=== PATIENT | female | born 2000 | race Caucasian/White ===

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

== ENCOUNTER 2024-01-21 08:24 | Emergency (ER) | payer OTHER, SELFPAY ==
[2024-01-21 09:34] LABS: Absolute Basophils 0.1 K/uL (0-0.5); Absolute Eosinophils 0.1 K/uL (0-0.5); Absolute Lymphocytes (CBC) 1.9 K/uL (0.7-4.9); Absolute Monocytes 0.5 K/uL (0.1-1.3); Absolute Neutrophil 3.8 K/uL (1.8-8.0); Basophils % 1.2 % (0-1.3); Eosinophils % 0.9 % (0-4.4); Hematocrit 41.1 % (36.0-45.0); Hemoglobin 13.5 g/dL (12.0-15.0); MCH 27.4 pg (27.0-35.0); MCHC 32.9 g/dL (32.0-36.0); MCV 83.2 fL (80-100); MPV 9.4 fL (7.6-11.3); Monocytes % 8.4 % (3.3-12.3); Neutrophils % 59.5 % (41.7-73.7); Nucleated Red Blood Cells % 0.1 % (0-0); Platelets 318 thou/uL (152-406); RBC Red Blood Cell Count 4.93 M/uL (3.86-4.86)
[2024-01-21 09:38] LABS: Specific Gravity 1.029 (1.005-1.030)
[2024-01-21 09:41] LABS: Specific Gravity 1.029 (1.005-1.030); Transitional Epithelial <5 /HPF (None Seen); Urine Bacteria >50 /HPF (<20); Urine Bilirubin 1+ (Negative); Urine Blood Negative (Negative); Urine Clarity Extremely Turbid (Clear); Urine Color Yellow (Yellow); Urine Culture Reflex Order NOT NEEDED; Urine Glucose 3+ (Negative); Urine Ketones 4+ (Over) (Negative); Urine Microscopic Reflex YN ORDER UMIC; Urine Mucus 4+ /HPF (None Seen); Urine Nitrite NEGATIVE (Negative); Urine Protein 1+ (Negative); Urine RBC <5 /HPF (None Seen); Urine Urobilinogen 1+ (Normal); Urine pH 5.5 (5.0-7.0)
[2024-01-21] MEDS ORDERED: ONDANSETRON 4 MG/2 ML VIAL ONE (09:43)
[2024-01-21] MEDS ORDERED: NA CHLORIDE 0.9% 1,000 ML ONE (09:46)
[2024-01-21] MEDS ORDERED: FAMOTIDINE 20 MG/2 ML VIAL IV ONE (09:46)
[2024-01-21 10:01] LABS: Albumin 4.5 g/dL (3.4-5.0); Albumin/Globulin Ratio 1.1 (1.1-1.8); Alkaline Phosphatase 62 U/L (45-117); Anion Gap 11.5 mEq/L (5.0-15.0); BUN Blood Urea Nitrogen 9 mg/dL (7-18); Bicarbonate 23 mEq/L (21-32); Bilirubin Total 0.9 mg/dL (0.2-1.0); Globulin 4.1 g/dL (2.3-3.5); Glomerular Filtration Rate 113 ml/min (=/>90); Glucose Level 144 mg/dL (74-106); Lipase 31 U/L (13-75); Potassium 3.5 mEq/L (3.5-5.1); Protein, Total 8.6 g/dL (6.4-8.2); Sodium Level 136 mEq/L (136-145)
[2024-01-21 10:02] LABS: ALT/SGPT < 14 U/L (13-56); AST/SGOT < 10 U/L (15-37)
--- NOTE | 2024-01-21 11:10 | EDPHYS ---
Physician Documentation [facility] Name: Mary Yancey Age: 23 yrs Sex: Female : 2000 Arrival Date: 01/21/2024 Time: 08:24 Bed 19 Private MD: ED Physician Drake Shelby HPI: 01/20 09:49 This 23 yrs old Female presents to ER via Ambulatory with complaints of Palpitations. rn 09:49 The patient presents with a history of heart racing. Context: The symptoms occur at rn rest. Onset: The symptoms/episode began/occurred 6 month(s) ago. Duration: The patient or guardian reports multiple episodes. Modifying factors: The symptoms are aggravated by nothing. The symptoms are alleviated by nothing. Severity of symptoms: At their worst the symptoms were moderate in the emergency department the symptoms are unchanged. The patient has experienced similar episodes in the past. Patient reports heart racing and palpitations, nausea, vomiting. Worse over the last couple of days but just recently took her last dose of Mounjaro. States this has been happening intermittently for 6 months. Patient is also type I diabetic on insulin, states glucose in the 200s lately currently down to 160s. Also having diarrhea. Feels weak and dehydrated. No abdominal pain. Historical: - Allergies: 08:38 No Known Allergies; ll1 - PMHx: 08:38 Diabetes - IDDM; Jeannette; Pilonidol Cyst; ll1 - Immunization history:: Adult Immunizations up to date. - Infectious Disease History:: Denies. - Family history:: not pertinent. - Hospitalizations: : No recent hospitalization is reported. - Social history:: Smoking status: Patient denies any tobacco usage or history of. ROS: 09:49 Constitutional: Negative for fever, chills, and weight loss, Cardiovascular: Positive rn for heart racing Respiratory: Negative for shortness of breath, cough, wheezing, and pleuritic chest pain, Abdomen/GI: Positive for nausea/vomiting/diarrhea. No abdominal pain MS/Extremity: Negative for injury and deformity, Neuro: Positive for generalized weakness Exam: 09:34 ECG was reviewed by the Attending Physician. rn 09:49 Constitutional: This is a well developed, well nourished patient who is awake, alert, rn and in no acute distress. Head/Face: Normocephalic, atraumatic. ENT: Dry mucous membranes Cardiovascular: Tachycardic, regular. Respiratory: Speaking full sentences, unlabored. Abdomen/GI: Soft, nontender, no masses, no guarding or rebound MS/ Extremity: Pulses equal, no cyanosis. Neurovascular intact. Full, normal range of motion. Equal circumference. Neuro: Awake and alert, GCS 15 Vital Signs: 08:49 BP 117 / 83; Pulse 85; Resp 18; Temp 98; Pulse Ox 100% ; Weight 83.01 kg; Height 5 ft. ll1 8 in. ; Pain 0/10; 10:07 BP 109 / 80; Pulse 100; Resp 16; Pulse Ox 99% ; bp 10:46 BP 116 / 82; Pulse 94; Resp 16; Pulse Ox 100% ; bp 11:45 BP 111 / 78; Pulse 94; Resp 15; Pulse Ox 100% ; bp 08:49 Body Mass Index 27.82 (83.01 kg, 172.72 cm) ll1 08:49 Pain Scale: Adult ll1 MDM: 08:30 Medical Screening Exam initiated rn 11:08 Data reviewed: vital signs, nurses notes, lab test result(s), and as a result, I will bowl turner patient. Counseling: I had a detailed discussion with the patient and/or guardian regarding the historical points, exam findings, and any diagnostic results supporting the discharge/admit diagnosis, lab results, the need for outpatient follow up, to return to the emergency department if symptoms worsen or persist or if there are any questions or concerns that arise at home. Response to treatment: the patient's symptoms have markedly improved after treatment, patient is well hydrated. and as a result, I will discharge patient. Special discussion: I discussed with the patient/guardian in detail that at this point there is no indication for admission to the hospital. It is understood, however, that if the symptoms persist or worsen the patient needs to return immediately for re-evaluation. Based on the history and exam findings, there is no indication for further emergent testing or inpatient evaluation. I discussed with the patient/guardian the need to see the primary care provider for further evaluation of the symptoms. ED course: No acute findings and workup. 4+ ketones but no anion gap or evidence of DKA. Glucose in the 100s. No acidosis. Stable vital signs. Improved with fluids. Still no abdominal pain or indication for emergent imaging at this time. Most likely secondary to patient's Mounjaro and recommend talking to her tube operator who put her on the medication but most likely needs to stop it. Could be causing metabolic disturbance as well as gastroparesis.. 01/20 09:04 Order name: CBC with Diff; Complete Time: 09:48 rn 01/20 09:04 Order name: CMP; Complete Time: 10:10 rn 01/20 09:04 Order name: Lipase; Complete Time: 10: rn 01/20 09:05 Order name: Test, Urine; Complete Time: :48 rn 01/20 09:05 Order name: Urinalysis w/ reflexes; Complete Time: :48 rn 01/20 09:04 Order name: EKG; Complete Time: : rn 01/20 09:04 Order name: IV Start; Complete Time: 09:21 rn 01/20 09:04 Order name: Labs collected and sent; Complete Time: 09:21 rn 01/20 09:04 Order name: Glucose Level; Complete Time: : rn 01/20 09:04 Order name: EKG - Nurse/Tech; Complete Time: 09:08 rn EC:34 Rate is 98 beats/min. Rhythm is regular. QRS [place] is Normal. [place] interval is normal. QRS rn interval is normal. QT interval is normal. No Q waves. T waves are Normal. No ST changes noted. Clinical impression: Normal ECG. Interpreted by me. Reviewed by me. Administered Medications: 09:30 Drug: Famotidine IVP 20 mg IVP once; dilute with 10 mL 0.9% NaCl; give over 2 minutes bp Route: IVP; Site: right antecubital; 11:46 Follow up: Response: No adverse reaction bp 09:30 Drug: Ondansetron IVP 4 mg IVP once; over 2 minutes Route: IVP; Site: right antecubital;bp 11:46 Follow up: Response: No adverse reaction bp 09:30 Drug: NS 0.9% IV 1000 ml IV at 1 bolus Per protocol; to be given as a bolus over 60 bp minutes Route: IV; Rate: 1 bolus; Site: right antecubital; 11:46 Follow up: IV Status: Completed infusion bp Disposition Summary: 01/21/24 11:10 Discharge Ordered Notes: Location: Home rn Problem: new rn Symptoms: have improved rn Condition: Stable rn Diagnosis - Dehydration rn - Adverse effect of unspecified drugs, medicaments and biological substances rn Followup: rn - With: Private Physician - When: As needed - Reason: Recheck today's complaints, Re-evaluation by your physician Discharge Instructions: - Discharge Summary Sheet rn - Dehydration, Adult rn Forms: - Medication Reconciliation Form rn - Antibiotic media intern - Prescription Opioid Use rn - Patient Portal Instructions rn - Leadership Thank You Letter rn Signatures: Dispatcher [employer] EDMS Drake Shelby MD MD rn Peltier, Brian RN RN Timothy Mayorga RN RN ll1 Corrections: (The following items were deleted from the chart) 09:05 09:05 Test, Urine+UC.LAB.BRZ ordered. EDMS EDMS 09:05 09:05 Urinalysis+U.LAB.BRZ ordered. EDMS EDMS
--- NOTE | 2024-01-21 11:10 | ER ---
Nurse's Notes [facility] Name: Mary Yancey Age: 23 yrs Sex: Female : 2000 Arrival Date: 01/21/2024 Time: 08:24 Bed 19 Private MD: Diagnosis: Dehydration;Adverse effect of unspecified drugs, medicaments and biological substances Presentation: 01/20 08:49 Chief complaint: Patient states: N/V, palpitations, elevated blood sugar since Friday. ll1 Coronavirus screen: Client denies travel out of the [place] in the last 14 days. At this time, the client does not indicate any symptoms associated with coronavirus-19. Ebola Screen: Patient denies travel to an Ebola-affected area in the 21 days before illness onset. Initial Sepsis Screen: Does the patient meet any 2 criteria? No. Patient's initial sepsis screen is negative. Does the patient have a suspected source of infection? No. Patient's initial sepsis screen is negative. Risk Assessment: Do you want to hurt yourself or someone else? Patient reports no desire to harm self or others. Onset of symptoms was January 18, 2024. 08:49 Method Of Arrival: Ambulatory ll1 08:49 Acuity: CATHY 3 ll1 Triage Assessment: 09:00 General: Appears in no apparent distress. Behavior is cooperative, appropriate for age, bp anxious. Pain: Denies pain. EENT: No deficits noted. Neuro: No deficits noted. Cardiovascular: Reports palpitations. Respiratory: No deficits noted. GI: No signs and/or symptoms were reported involving the gastrointestinal system. : No signs and/or symptoms were reported regarding the genitourinary system. Derm: No deficits noted. Musculoskeletal: No deficits noted. Historical: - Allergies: 08:38 No Known Allergies; ll1 - PMHx: 08:38 Diabetes - IDDM; Jeannette; Pilonidol Cyst; ll1 - Immunization history:: Adult Immunizations up to date. - Infectious Disease History:: Denies. - Family history:: not pertinent. - Hospitalizations: : No recent hospitalization is reported. - Social history:: Smoking status: Patient denies any tobacco usage or history of. Screenin:44 [facility] ED Fall Risk Assessment (Adult) History of falling in the last 3 months, bp including since admission No falls in past 3 months (0 pts) Confusion or Disorientation No (0 pts) Intoxicated or Sedated No (0 pts) Impaired Gait No (0 pts) Mobility Assist Device Used No (0 pt) Altered Elimination No (0 pt) Score/Fall Risk Level 0 - 2 = Low Risk. Abuse screen: Denies threats or abuse. Denies injuries from another. Nutritional screening: No deficits noted. Tuberculosis screening: No symptoms or risk factors identified. Assessment: 09:00 General: Appears in no apparent distress. Behavior is cooperative, appropriate for age, bp anxious. 10:46 Reassessment: Patient appears in no apparent distress at this time. Patient is alert, bp oriented x 3, equal unlabored respirations, skin warm/dry/pink. Vital Signs: 08:49 BP 117 / 83; Pulse 85; Resp 18; Temp 98; Pulse Ox 100% ; Weight 83.01 kg; Height 5 ft. ll1 8 in. ; Pain 0/10; 10:07 BP 109 / 80; Pulse 100; Resp 16; Pulse Ox 99% ; bp 10:46 BP 116 / 82; Pulse 94; Resp 16; Pulse Ox 100% ; bp 11:45 BP 111 / 78; Pulse 94; Resp 15; Pulse Ox 100% ; bp 08:49 Body Mass Index 27.82 (83.01 kg, 172.72 cm) ll1 08:49 Pain Scale: Adult ll1 ED Course: 08:26 Patient arrived in ED. mg5 08:30 Drake Shelby MD is Attending Physician. rn 08:38 Arm band placed on Patient placed in an exam room, on a stretcher. ll1 08:51 Triage completed. ll1 09:08 Art [place], SANJANA is Primary Nurse. bp 09:22 Initial lab(s) drawn, by sc, sent to lab. Urine collected: clean catch specimen, clear. bp Inserted saline lock: 20 gauge in right antecubital area, using aseptic technique. Blood collected. Flushed with 10 mL NS. 11:44 Patient has correct armband on for positive identification. bp 11:44 No provider procedures requiring assistance completed. IV discontinued, intact, bp bleeding controlled, No redness/swelling at site. Pressure dressing applied. Administered Medications: 09:30 Drug: Famotidine IVP 20 mg IVP once; dilute with 10 mL 0.9% NaCl; give over 2 minutes bp Route: IVP; Site: right antecubital; 11:46 Follow up: Response: No adverse reaction bp 09:30 Drug: Ondansetron IVP 4 mg IVP once; over 2 minutes Route: IVP; Site: right antecubital;bp 11:46 Follow up: Response: No adverse reaction bp 09:30 Drug: NS 0.9% IV 1000 ml IV at 1 bolus Per protocol; to be given as a bolus over 60 bp minutes Route: IV; Rate: 1 bolus; Site: right antecubital; 11:46 Follow up: IV Status: Completed infusion bp Medication: 10:46 VIS not applicable for this client. bp Outcome: 11:10 Discharge ordered by . rn 11:44 Discharged to home ambulatory, with family, bp 11:44 Condition: stable 11:44 Discharge instructions given to patient, Instructed on discharge instructions, follow up and referral plans. Demonstrated understanding of instructions, follow-up care, 11:46 Patient left the ED. bp Signatures: Drake Shelby MD MD rn Peltier, Brian RN RN bp Timothy Bolanos RN RN ll1 Ning Ling mg5
[2024-01-21 12:05] VITALS: TEMP 98
[2024-01-21 12:11] VITALS: O2SAT 100
[2024-01-21 12:12] VITALS: BP 111/78
--- NOTE | 2024-01-22 11:10 | EKG ---
Test Date: 2024-01-21 Test Time: 08:47:37 Bobtailer: LML MEASUREMENT RESULTS: Intervals: Rate: 98 FL: 118 QRSD: 70 QT: 348 QTc: 444 Elizabeth: P: 40 FL: 118 QRS: 85 T: 51 INTERPRETIVE STATEMENTS: Normal sinus rhythm Normal ECG No previous ECG available for comparison Electronically Signed On 01-22-24 11:07:58 CDT by Vincent Azul
== END 2024-01-21 11:46 | disposition home or self-care (01) ==
LOC: ER 08:24
DX: E86.0 Dehydration (principal); T50.995A Adverse effect of other drugs, medicaments and biological substances, initial encounter; E10.9 Type 1 diabetes mellitus without complications; Z79.4 Long term (current) use of insulin
CPT/HCPCS: 36415; 80053; 81001; 81025; 83690; 85025; 93005; 96361; 96374; 96375; 99284; J2405; J7030